=== PATIENT | male | born 1960 | race Two or more races ===

== ENCOUNTER 2018-08-04 06:02 | Day surgery (SDC) | payer OTHER ==
[2018-08-04] MEDS ORDERED: GLYCOPYRROLATE 0.4 MG INJ (07:00)
[2018-08-04] MEDS ORDERED: MIDAZOLAM 1 MG/ML 2 ML INJ (07:07)
[2018-08-04] MEDS ORDERED: LIDOCAINE 2% (SDV) 5 ML INJ (07:07)
[2018-08-04] MEDS ORDERED: FENTAnyl 50 MCG/ML VIAL (07:07)
[2018-08-04] MEDS ORDERED: PROPOFOL 20 ML (07:07)
[2018-08-04] MEDS ORDERED: hydrALAzine 20 MG INJ IV (08:00)
[2018-08-04] MEDS ORDERED: LABETALOL HCL 20MG INJ IV (08:00)
[2018-08-04] MEDS ORDERED: FENTAnyl 50 MCG/ML VIAL IV (08:00)
[2018-08-04] MEDS ORDERED: MEPERIDINE 25 MG INJ IV (08:00)
[2018-08-04] MEDS ORDERED: ONDANSETRON 4 MG INJ IV (08:00)
[2018-08-04] MEDS ORDERED: HYDROmorphONE 1 MG/5 ML IV SYRINGE IV (08:00)
[2018-08-04] MEDS ORDERED: OXYCODONE/ACETAMINOPHEN (5/325) TAB PO ×2 (08:00→08:30)
[2018-08-04] MEDS: LIDOCAINE 1% (STERILE-PAK) 30 ML INJ (08:02)
[2018-08-04] MEDS: BUPIVACAINE 0.5%/EPI (SDV) 30 ML INJ (08:02)
[2018-08-04] MEDS ORDERED: DEXAMETHASONE 4 MG/ML 1 ML INJ (08:02)
[2018-08-04] MEDS ORDERED: ONDANSETRON 4 MG INJ (08:02)
[2018-08-04] MEDS ORDERED: METOCLOPRAMIDE 10 MG INJ (08:03)
[2018-08-04] MEDS ORDERED: FAMOTIDINE 20 MG INJ (08:03)
[2018-08-04] MEDS ORDERED: KETOROLAC 30 MG INJ (08:14)
== END 2018-08-04 10:20 | disposition home or self-care (01) ==
LOC: SDS 06:02
DX: K60.3 Anal fistula (principal); K62.5 Hemorrhage of anus and rectum
CPT/HCPCS: 46270

== ENCOUNTER 2018-11-03 09:47 | Day surgery (SDC) | payer OTHER ==
[2018-11-03] MEDS ORDERED: MEPERIDINE 25 MG INJ IV (10:30)
[2018-11-03] MEDS ORDERED: HYDROmorphONE 1 MG/5 ML IV SYRINGE IV (10:30)
[2018-11-03] MEDS ORDERED: hydrALAzine 20 MG INJ IV (10:30)
[2018-11-03] MEDS ORDERED: ONDANSETRON 4 MG INJ IV (10:30)
[2018-11-03] MEDS ORDERED: DIPHENHYDRAMINE 50 MG INJ IV (10:30)
[2018-11-03] MEDS ORDERED: LABETALOL HCL 20MG INJ IV (10:30)
[2018-11-03] MEDS ORDERED: PROPOFOL 40 ML (10:47)
[2018-11-03] MEDS ORDERED: LIDOCAINE 2% (SDV) 5 ML INJ (10:47)
== END 2018-11-03 11:57 | disposition home or self-care (01) ==
LOC: GIL 09:47
DX: Z12.11 Encounter for screening for malignant neoplasm of colon (principal); K64.8 Other hemorrhoids; E78.5 Hyperlipidemia, unspecified; I10 Essential (primary) hypertension; G47.30 Sleep apnea, unspecified
CPT/HCPCS: 45378